=== PATIENT | male | born 1950 | race Caucasian/White ===

== ENCOUNTER 2018-08-19 06:32 | Emergency (ER) | payer OTHER ==
[~2018-08-19] VITALS: Ht 170.2 cm; Wt 89.8 kg
[~2018-08-19 06:32] MED LIST: AVALIDE 150-12.1 TA1 PO; AVALIDE 300-12.1 TAB PO; CADUET 5 MG/101 TAB PO; NORVASC5 MG PO
[2018-08-19] MEDS ORDERED: SKELAXIN800 MG PO (12:17)
[2018-08-19] MEDS ORDERED: KETO10TA2 PO (12:17)
== END 2018-08-19 12:38 | disposition home or self-care (01) ==
LOC: ER 06:32
DX: M79.652 Pain in left thigh (principal)

== ENCOUNTER → 2021-01-02 | Emergency (ER) | payer OTHER ==
[~2021-01-02] VITALS: Ht 170.2 cm; Wt 89.8 kg
[~2021-01-02] MED LIST changes: +KETO10TA2 PO; +LISINOPRIL5 MG; +PEPCID40 MG PO; +SIMVASTATIN5 MG; +SKELAXIN800 MG PO; +ZITHROMAX500 MG PO; +ZYNCOF 20-400120 ML PO
== END | disposition home or self-care (01) ==
LOC: ER 03:23
DX: J40 Bronchitis, not specified as acute or chronic (principal); R05 Cough; R50.9 Fever, unspecified; R10.13 Epigastric pain

== ENCOUNTER 2023-07-05 07:58 | Emergency (ER) | payer OTHER ==
[~2023-07-05] VITALS: Ht 170.2 cm; Wt 88.5 kg
[2023-07-05 09:41] LABS: HEMATOCRIT 40.1 % (39.0-48.0); HEMOGLOBIN 13.7 g/dL (13-16.00); MEAN CELL VOLUME 86.8 fL (80.0-100.00); MEAN CORPUSCULAR HEMOGLOBIN 29.6 pg (27.00-32.0); MEAN CORPUSCULAR HGB CONC 34.1 g/dl (32.0-36.0); PLATELET COUNT 201 K/uL (150-450); RED BLOOD COUNT 4.62 M/uL (4.00-6.00); RED CELL DISTRIBUTION WIDTH 14.8 % (11.5-14.5)
[2023-07-05 10:18] LABS: CALCIUM 8.7 mg/dL (8.5-10.1); CREATININE SERUM 0.99 mg/dL (0.70-1.30); GFR 73.89; POTASSIUM 3.9 mEq/L (3.5-5.1)
[2023-07-05 10:26] LABS: URINE APPEARANCE Clear; URINE BILIRRUBIN Negative (NEGATIVE); URINE BLOOD Small; URINE COLOR Yellow; URINE GLUCOSE Negative (NEGATIVE); URINE LEUKOCYTE Negative; URINE NITRATE Negative; URINE PROTEIN 30 (NEGATIVE); URINE UROBILINOGEN 0.2 E.U./dl
[2023-07-05 10:29] LABS: URINE BACTERIA 6.2 uL (0.0-1933); URINE EPITHELIAL CELLS 4.9 uL (0.0-38.8); URINE RBC 63.2 uL (0.0-20.8)
[2023-07-05 10:41] LABS: URINE WBC 0.9 uL (0.0-23.2)
== END 2023-07-05 12:17 | disposition home or self-care (01) ==
LOC: ER 07:58
PROVIDERS: General Practice
DX: J10.1 Influenza due to other identified influenza virus with other respiratory manifestations (principal); B34.9 Viral infection, unspecified; I10 Essential (primary) hypertension; K52.89 Other specified noninfective gastroenteritis and colitis; Z20.822 Contact with and (suspected) exposure to COVID-19
CPT/HCPCS: 36415; 71046; 96365; 96366; 99284; J7030